=== PATIENT | male | born 1970 | race Caucasian/White ===

== ENCOUNTER 2021-02-23 09:27 | Day surgery (SDC) | payer OTHER ==
--- NOTE | 2021-02-21 11:22 | RAD REPORT ---
EXAM DESCRIPTION: Natividad Jin (2 Views)02/21/2021 11:16 am CLINICAL HISTORY: Preop/hypertension COMPARISON: None FINDINGS: The lungs appear clear of acute infiltrate. The heart is normal size IMPRESSION: No acute abnormalities displayed
[2021-02-21 11:46] LABS: Absolute Lymphocytes (CBC) 2.4 K/uL (0.7-4.9); Basophils % 0.7 % (0-1.3); Lymphocytes % 26.9 % (15.3-44.8); MPV 8.5 fL (7.6-11.3); RBC Red Blood Cell Count 4.47 M/uL (4.33-5.43)
[2021-02-21 11:56] LABS: Protime INR 1.05
[2021-02-21 11:59] LABS: Potassium 4.3 mmol/L (3.5-5.1)
--- NOTE | 2021-02-22 16:32 | EKG ---
Test Date: 2021-02-21 Test Time: 09:59:19 Home Energy Auditor: FLORINA MEASUREMENT RESULTS: Intervals: Rate: 86 SC: 186 QRSD: 96 QT: 360 QTc: 430 [place]: P: 56 SC: 186 QRS: 50 T: 54 INTERPRETIVE STATEMENTS: Normal sinus rhythm Normal ECG No previous ECG available for comparison Electronically Signed On 02-22-21 16:29:56 CDT by Ancelmo Morales
[~2021-02-23 09:27] MED LIST: HEPA 1000U/500MLS 1,000 UNIT/500 ML BAG IV ONE
[2021-02-23] MEDS ORDERED: NA CHLORIDE 0.9% 500 ML ONE (09:58)
[2021-02-23] MEDS ORDERED: LIDOCAINE 1% 20 ML MDV ONE (10:48)
[2021-02-23] MEDS ORDERED: FENTANYL CITR 100 MCG/2 ML ONE (10:54)
[2021-02-23] MEDS ORDERED: MIDAZOLAM HCL 2 MG/2 ML INJ ONE ×2 (10:54→11:02)
[2021-02-23 11:42] VITALS: TEMP 97.4
[2021-02-23 13:17] VITALS: BP 143/68; O2SAT 98
--- NOTE | 2021-02-23 15:42 | OP ---
Surgeon: Ancelmo Morales MD Electrolysis Investigator: Quique Alyx. He is a patient of Dr. Bragg with documented severe peripheral arterial disease, brought to the cytology laboratory manager today, 02/23/2021. Procedures Performed: He underwent an abdominal angiogram with runoff with renal interpretation. He had selective angiography of the right common iliac and left common iliac. Indication: Peripheral arterial disease. Procedure In Detail: The patient was brought to the cytology laboratory manager, prepped and draped in routine sterile fashion. Given Versed for sedation as well as fentanyl. A 6-Liberian sheath was introduced in the rig ht common femoral artery using a 6-Liberian sheath, Seldinger technique, and 10 mL of Xylocaine. A pig tail catheter was advanced above the renal artery. Abdominal angiogram with runoff showed severe dis be peripheral arterial disease including the iliacs. The renals were normal. Distal aorta was norm al. The pigtail catheter was then moved just above the bifurcation of the iliacs. Angiography showe d 80% right common iliac artery, severe stenosis on the left internal iliac, a total occlusion on the right SFA with severe distal plaquing and below the knee. The SFA did reconstitute just above the p opliteal. On the left side, he had a 90% common iliac, 90% left common femoral artery. He had a 99% ostial SFA. His anterior tibial, posterior tibial, and peroneal were all completely occluded. The anterior tibial and the peroneal on the left side reconstituted distally. There were no complication s. Blood Loss: 5 mL. Postoperative Diagnosis: Severe peripheral arterial disease. I will review the film with the surgeons first. I think he is a better candidate for surgery, althou gh his left leg could certainly be done with stents. Nevertheless, I am going to refer him to [facility] in [place] and make decisions later. For now, we will continue medical therapy. He will go home after 2 hours of bedrest. Anesthesia: Total conscious sedation was 45 minutes. He will go home in 2 hours. NB/MODL Voice ID: [id number] Report ID: [id number]
== END 2021-02-23 13:18 | disposition home or self-care (01) ==
LOC: CCL 09:27
DX: I70.203 Unspecified atherosclerosis of native arteries of extremities, bilateral legs (principal); I70.92 Chronic total occlusion of artery of the extremities; I10 Essential (primary) hypertension; E78.5 Hyperlipidemia, unspecified; F17.210 Nicotine dependence, cigarettes, uncomplicated; Z20.822 Contact with and (suspected) exposure to COVID-19; Z88.0 Allergy status to penicillin; Z82.49 Family history of ischemic heart disease and other diseases of the circulatory system
CPT/HCPCS: 93005; 85025; 80048; 36415; 85610; 85730; 71046; 36200; 75630; U0003; C1893; C1760; J2250 ×2; J3010; J7040; J1644 ×2